=== PATIENT | male | born 1985 | race Caucasian/White ===

== ENCOUNTER 2022-04-02 16:24 | Emergency (ER) | payer OTHER ==
[2022-04-02 17:17] LABS: BASOPHIL 0.4 % (0-2); EOSINOPHIL 0.1 % (0-5); HCT 40.2 % (42.0-52.0); HGB 13.3 g/dl (13.2-18.0); LYMPHOCYTE 14.5 % (15-48); MCHC 33.1 g/dL (32.0-36.0); MCV 90.7 fL (78.0-100.0); MONOCYTE 8.7 % (0-12); MPV 9.9 fL (6.0-9.5); NEUTROPHIL 75.7 % (41-80); NRBC 0; PLT 292 K/uL (150-400); RBC 4.43 M/uL (4.70-6.00); RDW 13.7 % (11.5-14.0); WBC 12.4 K/uL (4.0-10.5)
[2022-04-02 17:31] LABS: INR 1.07 (0.9-1.2); PROTHROMBIN TIME 13.3 SECONDS (11.8-13.4); PTT 29.1 SECONDS (24.4-34.7)
[2022-04-02 17:36] LABS: ALBUMIN 3.6 g/dL (3.4-5.0); ALKALINE PHOSHATASE 98 U/L (46-116); ALT 53 U/L (16-63); AST 42 U/L (15-37); BILIRUBIN - TOTAL 0.2 mg/dL (0.2-1.0); BUN 14 mg/dL (7-18); BUN/CREAT RATIO (CALC) 8.5 RATIO; CHLORIDE 100 mmol/L (98-107); CO2 (BICARBONATE) 28 mmol/L (21-32); CPK 146 U/L (39-308); CREATININE 1.65 mg/dL (0.67-1.17); GLUCOSE 141 mg/dL (74-106); MAGNESIUM 1.8 mg/dL (1.8-2.4); TOTAL PROTEIN 6.6 g/dL (6.4-8.2)
[2022-04-02 17:39] LABS: LACTIC ACID 2.5 mmol/L (0.4-1.9)
[2022-04-02 18:03] LABS: BILIRUBIN NEGATIVE (NEGATIVE); BLOOD NEGATIVE Ery/uL (NEGATIVE); CLARITY CLEAR (CLEAR); COLOR YELLOW (YELLOW); GLUCOSE (U) NORMAL (NORMAL); LEUKOCYTES NEGATIVE Leu/uL (NEGATIVE); NITRITE NEGATIVE (NEGATIVE); PROTEIN 2+ mg/dL (NEGATIVE); SPECIFIC GRAVITY 1.025 (1.001-1.030); UROBILINOGEN 0.2 mg/dL (0.2-1.0)
[2022-04-02 18:16] LABS: AMPHETAMINES NEGATIVE (NEGATIVE); BACTERIA TRACE; BARBITURATES NEGATIVE (NEGATIVE); ECSTASY (MDMA) NEGATIVE (NEGATIVE); MARIJUANA (THC) NEGATIVE (NEGATIVE); METHADONE NEGATIVE (NEGATIVE); OPIATES NEGATIVE (NEGATIVE); OXYCODONE NEGATIVE (NEGATIVE)
[2022-04-04 22:09] LABS: CHLAMYDIA TRACHOMATIS, NAA Negative (Negative); NEISSERIA GONORRHOEAE, NAA Negative (Negative)
== END 2022-04-03 00:03 | disposition home or self-care (01) ==
LOC: FER 16:24
PROVIDERS: Emergency Medicine
DX: R55 Syncope and collapse (principal); E86.0 Dehydration; N17.9 Acute kidney failure, unspecified; F17.210 Nicotine dependence, cigarettes, uncomplicated
CPT/HCPCS: 36415; 70450; 71045; 80053; 80305; 81001; 82550; 83605; 83735; 83880; 84145; 84439; 85025; 85610; 85730; 87491; 87591; 93005; G0480; J3475; J7030; J7050; J7120